=== PATIENT | female | born 1975 | race Caucasian/White ===

== ENCOUNTER 2024-05-28 13:38 | Emergency (ER) | payer OTHER, SELFPAY ==
[2024-05-28 13:43] VITALS: BP 131/81
--- NOTE | 2024-05-28 15:07 | ED.GENMED ---
History of Present Illness
General
Chief Complaint: Nose Bleed
Source: patient and spouse
Exam Limitations: none
Time Seen by Provider: 05/28/24 14:54
Nursing documentation reviewed up to this point in time: agreed with
History of Present Illness
History of Present Illness:
48-year-old female with history of intermittent nosebleeds states she had 1 nosebleed each day for the past 3 days that stopped with pressure. She did have dental surgery on Wednesday and has intact sutures along entire upper frontal gingival mucosal
border. She denies fever, she states her dental surgery site is healing well, swelling much improved.
Past History
Past History
ED Past Medical History: None
ED Past Surgical History: Other (dental surgery, sutures in upper gingival mucosal border, intact, healing well. )
Review of Systems
Review of Systems
Allergies reviewed?: Yes
All Other Systems: ROS reviewed and negative except as documented in HPI and ROS
Constitutional: Denies fever or fatigue
EENT: Reports other (Right-sided epistaxis 3 times, once each day for the past 3 days, none now)
ABD/GI: Denies nausea
Skin: Reports no symptoms
Neurological: Denies dizzy or weakness
Phy Exam
Physical Exam
Physical Exam:
GENERAL: No acute distress. A&Ox3.
CONSTITUTIONAL: Afebrile.
ENMT: moist mucus membranes, Pharynx nl, No active nasal bleeding. Tiny white pimple like lesion medial right nasal passage at site of Keisselbach's Plexus, most likely site of previous bleeding.
RESPIRATORY: Regular respirations, nonlabored, lungs clear.
CARDIOVASCULAR: Regular rate and rhythm, no murmurs, no rubs.
MUSCULOSKELETAL: Moves with ease. Well perfused.
SKIN: Warm, dry, pink
PSYCH: Normal mood and affect. Well kept, interactive and appropriate
NEUROLOGIC: Awake, alert and oriented. No focal neurological deficits
Course
Vital Signs
Initial and Last Documented VS:
Initial Vital Signs
Temp Pulse Resp BP Pulse Ox
98.7 F 84 18 131/81 100
05/28/24 13:43 05/28/24 13:43 05/28/24 13:43 05/28/24 13:43 05/28/24 13:43
Last Documented Vital Signs
Temp Pulse Resp BP Pulse Ox
98.7 F 84 18 131/81 100
05/28/24 13:43 05/28/24 13:43 05/28/24 13:43 05/28/24 13:43 05/28/24 13:43
MDM/Problems Addressed
MDM/Problems Addressed:
48-year-old female with history of intermittent nosebleeds states she had 1 nosebleed each day for the past 3 days that stopped with pressure. She did have dental surgery on Wednesday and has intact sutures along entire upper frontal gingival mucosal
border. She denies fever, she states her dental surgery site is healing well, swelling much improved.
Patient gets blood work every year at her doctor's office and has no history of anemia or thrombocytopenia or bleeding disorder
She states she is mainly concerned because her is going away all next week and she will be alone. Her states you have 2 grown sons in the house that can help you if you need. Patient reassured that there is no sign of any
significant bleeding. She has no bruising anywhere do not suspect low platelets. No indication for lab at this time.
There is no bleeding at this time.
Patient was provided with nose clamp to use if needed.
Medial aspect of right nostril has a tiny raised area that is most likely the site of previous bleeding. No bleeding now
*Critical Care Note
Total Time (30-74mins, 75-104mins- exclusive of procedures): Not Applicable
ED Attending Note
-
Portions of this chart may have been created with voice recognition software.� Occasional wrong word or��sound alike� substitutions may have occurred due to the inherent limitations of voice recognition software.
Discharge Plan
Departure
Patient Disposition: Home (Routine Discharge)
Date of Disposition: 05/28/24
Time of Disposition: 15:14
Patient with high blood pressure during this ER visit?: No
Condition: Good
Discharge Problem:
Right-sided epistaxis
Instructions: Nosebleeds (DC)
Referrals:
Shahram Garcia MD [Family Provider] -
Ruben Benjamin MD [Active] - As needed
Activity Restrictions/Additional Instructions:
As we discussed, I see nothing worrisome in your exam.
If your nosebleeds again, put the clip on as I showed you and leave it there for 15 minutes. You may remove after 15 minutes and is still bleeding put it on for another 15 minutes and then repeat this 1 more time if still bleeding.
If the bleeding does not stop after this she just have to come back into the ER
Interventions
Interventions:
*Risk Screen - Suicide Last Done: 05/28/24 13:48
*General Assessment Last Done: 05/28/24 13:48
*Neglect/Abuse Screening Last Done: 05/28/24 13:48
ED- Fall Risk Assessment Last Done: 05/28/24 14:43
*ED COVID-19 Vaccine History Last Done: 05/28/24 14:43
*Nursing Disposition Last Done: 05/28/24 15:18
ED-EENT Assessment Last Done: 05/28/24 14:43
Discharge Date and Time
Discharge Date/Time: 05/28/24 15:19
Print Language: DIVEHI
== END 2024-05-28 15:19 | disposition home or self-care (01) ==
LOC: EMR 13:38
PROVIDERS: EMERGENCY PHYSICIAN Emergency Medicine; FAMILY PHYSICIAN Family Medicine
DX: R04.0 Epistaxis (principal)
CPT/HCPCS: 99282

== ENCOUNTER → 2025-01-04 09:27 | Outpatient (REF) | payer OTHER, SELFPAY | LOC: WDC 09:27 | PROVIDERS: ATTENDING PHYSICIAN Nurse Practitioner Adult Health | DX: N64.4 Mastodynia (principal) | CPT/HCPCS: 76642; 77062; 77066 ==

== ENCOUNTER 2025-09-14 08:20 | Outpatient (RCR) | payer OTHER, SELFPAY | END 2025-09-14 23:59 | disposition home or self-care (01) | LOC: RPT 08:20 | PROVIDERS: ATTENDING PHYSICIAN Family Medicine | DX: M54.12 Radiculopathy, cervical region (principal); M25.511 Pain in right shoulder; Z73.6 Limitation of activities due to disability; M43.6 Torticollis; M62.81 Muscle weakness (generalized) | CPT/HCPCS: 97010; 97110; 97140; 97162; 97535 ==